=== PATIENT | male | born 1955 | race Caucasian/White ===

== ENCOUNTER 2022-03-27 08:34 | Outpatient (CLI) | payer MEDICARE, BC, SELFPAY ==
[2022-03-27 15:01] LABS: Thyroid Stimulating Hormone* 0.107 uIU/mL (0.270-4.20)
== END 2022-03-27 08:35 | disposition home or self-care (01) ==
LOC: FBOREF 08:34
PROVIDERS: PCP Family Medicine; Visit Provider Family Medicine
DX: E03.9 Hypothyroidism, unspecified (principal); E11.9 Type 2 diabetes mellitus without complications
CPT/HCPCS: 84443

== ENCOUNTER 2022-05-31 09:06 | Outpatient (CLI) | payer MEDICARE, BC, SELFPAY ==
[2022-05-31 13:51] LABS: Basophils Absolute Auto 0.02 K/uL (0.00-0.30); Basophils Percent Auto 0.4 % (0.0-3.0); Eosinophils Absolute Auto 0.14 K/uL (0.00-0.50); Eosinophils Percent Auto 2.8 % (0.0-7.0); Hematocrit 37.9 % (37.0-53.0); Hemoglobin* 12.8 gm/dL (13.5-17.5); Immature Granulocytes Abs Auto 0.01 K/uL (0.00-0.30); Immature Granulocytes Pct Auto 0.2 %; Lymphocytes Absolute Auto 1.53 K/uL (0.90-2.90); Lymphocytes Percent Auto 30.4 % (20-44); Mean Corpuscular HGB Conc 34 gm/dL (32-36); Mean Corpuscular Hemoglobin 31 pg (26-34); Mean Corpuscular Volume 91 fL (80-100); Monocytes Percent Auto 9.3 % (0.0-11.0); Neutrophils Absolute Auto 2.86 K/uL (1.7-7.0); Neutrophils Percent Auto 56.9 % (42.0-72.0); Platelet Count* 237 K/uL (140-440); RDW Coefficient of Variation % 12.4 % (11.5-15.5); Red Blood Count 4.16 m/uL (4.30-5.90); White Blood Count* 5.03 K/uL (4.50-11.00)
[2022-05-31 13:57] LABS: Slide Review Reflex No
[2022-05-31 15:12] LABS: Chloride* 100 mmol/L (96-114); Potassium* 4.1 mmol/L (3.6-5.1); Sodium* 140 mmol/L (135-149)
[2022-05-31 15:15] LABS: Blood Urea Nitrogen* 19 mg/dL (7-30); Carbon Dioxide* 32 mmol/L (20-32); Creatinine* 1.2 mg/dL (0.5-1.5); Estimated Glomerular Filt Rate 66 ml/min
[2022-05-31 15:16] LABS: Calcium* 9.3 mg/dL (8.4-10.6); Glucose* 82 mg/dL (60-115)
== END 2022-05-31 09:07 | disposition home or self-care (01) ==
PROVIDERS: PCP Family Medicine; Visit Provider Family Medicine
DX: Z01.818 Encounter for other preprocedural examination (principal); I10 Essential (primary) hypertension
CPT/HCPCS: 80048; 85025

== ENCOUNTER 2022-06-04 09:18 | Outpatient (CLI) | payer MEDICARE, BC, SELFPAY ==
[2022-06-04 14:37] LABS: SARS PCR* Negative SARS-CoV-2 (Negative)
== END 2022-06-04 09:19 | disposition home or self-care (01) ==
LOC: FBOREF 09:18
PROVIDERS: PCP Family Medicine; Visit Provider Orthopaedic Surgery
DX: Z20.822 Contact with and (suspected) exposure to COVID-19 (principal)
CPT/HCPCS: 87635

== ENCOUNTER 2022-06-05 06:44 | Day surgery (SDC) | payer MEDICARE, BC, SELFPAY ==
[2022-06-05] VITALS (13 sets, daily range): BP systolic 115–170; BP diastolic 55–70; PULSE 62–72; RESP 16; TEMP 36.4–36.8; O2SAT 94–100; BMI 32.3
[2022-06-05] MEDS: LACTATED RINGERS 1000 ML 1,000 ML 100 ML IV (07:47)
[2022-06-05] MEDS: SODIUM CHLORIDE 0.9 % (FLUSH) 10 ML SYRINGE IVF (07:48)
[2022-06-05] MEDS: CEFAZOLIN 2 GM INJ IVP (08:25)
[2022-06-05] MEDS: BUPIVACAINE 0.25% 30 ML INJECTION (09:15)
--- NOTE | 2022-06-05 09:19 | P.ORPRC_ITS ---
Procedure Note Date of procedure: 06/05/22 Procedure: SURGEON: Chris Espinoza MD PICKING CREW SUPERVISOR: MARILIA Ivey PREOPERATIVE DIAGNOSIS: Left knee medial meniscus root tear, medial compartment osteoarthritis, lateral meniscus tear POSTOPERATIVE DIAGNOSIS: Left knee medial meniscus root tear, medial compartme nt osteoarthritis, lateral meniscus tear NAME OF OPERATION: Left knee arthroscopic partial medial meniscectomy, medial compartment chondroplasty, partial lateral meniscectomy ANESTHESIA: Spinal ESTIMATED BLOOD LOSS: 0 mL COMPLICATIONS: None SPECIMENS: None DRAINS: None PREOPERATIVE ANTIBIOTICS: Ancef 2 gram INDICATIONS: The patient is a 67-year-old male with a history of left knee medial pain. MRI scan is consistent with a medial meniscus root tear. Despite appropriate nonoperative management, including activity modification, antiinflammatories, lpwz-oud-ijleahj pain medication, bracing, physical therapy, and injections they continue to have pain and disability. Operative intervention was offered. The risks, benefits and expected outcomes were discussed in detail. These included but were not limited to: Infection, bleeding, injury to blood vessel or nerve, venous thromboembolism. All questions were answered to their satisfaction. PROCEDURE: Spinal anesthesia was administered. The patient was placed supine on the operating room table. The left lower extremity was prepped and draped in the usual sterile fashion. The limb was exsanguinated with the Sundar bandage. The pneumatic tourniquet was inflated to 300 mmHg. A standard anterolateral portal was established. The arthroscope was introduced. The working portal was established anteromedially. Diagnostic arthroscopy was performed with findings as follows: The suprapatellar pouch shows loose bodies proximally consistent with either articular cartilage or fibrinous exudate. Articular surface on the patella is normal. Articular surface on the trochlea shows a focal area of grade 2/3 change distally. The medial gutter has loose bodies consistent with articular cartilage versus fibrinous exudate. Given the amount of varus through the upper tibia and through the knee joint, it is quite difficult to visualize the medial compartment. The medial compartment shows diffuse grade 3 change on the medial femoral condyle, there is a focal area of grade 4 change under the midbody of the medial meniscus. The medial meniscus has degenerative tearing of the leading edge of the posterior horn with a radial tear at the posterior tibial attachment from the leading edge to the capsule, detaching it from the tibia. The notch shows the ACL to be intact, with some degenerative fraying at its insertion. The lateral compartment shows normal articular cartilage on the lateral femoral condyle and lateral tibial plateau. The lateral meniscus has a small radial tear at the junction of the midbody and anterior horn with some chondrocalcinosis versus recent corticosteroid injection. The lateral gutter has loose bodies consistent with either articular cartilage or fibrinous exudate. With the grade 4 change on the upper tibia in the medial compartment, it was felt that root repair was not indicated. Therefore, the posterior horn of the medial meniscus was debrided to a stable base using a combination of baskets and ramon through both portals. Unstable chondral flaps on the medial femoral condyle and medial tibial plateau were debrided with the shaver through both portals, taken to a stable base. Finally, tearing of the lateral meniscus was debrided with a basket and shaver through both portals, taking it to a stable base. Arthroscopic instruments were removed, the portal sites were Steri-Stripped closed, the knee was infiltrated with 30 mL of 0.25% Marcaine without epinephrine. A dry dressing was applied, the tourniquet was released. Sponge and needle counts were correct x 2. The patient tolerated the procedure well. There were no apparent complications. They were carefully transferred to the hospital bed and taken to the postanesthesia care unit in satisfactory condition. PLAN: The patient will be discharged to home. They may weightbear as tolerates. Range of motion will be unrestricted. They will follow up in the office next week for a wound check.
--- NOTE | 2022-06-05 09:28 | W.ANESCHARGE ---
Anesthesia Charges Start Date/Time Anesthesia Start Date: 06/05/22 Anesthesia Start Time: 09:23 Stop Date/Time Anesthesia Stop Date: 06/05/22 Anesthesia Stop Time: 09:29 Summary Emergency: No
--- NOTE | 2022-06-05 09:37 | SUR.PHASEI ---
pt has insulin pump intact with a patch to continuously check his blood sugar blood sugar 150 at this time insulin pump running
--- NOTE | 2022-06-05 10:43 | W.ANESCHARGE ---
Anesthesia Charges Start Date/Time Anesthesia Start Date: 06/05/22 Anesthesia Start Time: 08:23 Stop Date/Time Anesthesia Stop Date: 06/05/22 Anesthesia Stop Time: 09:29 Summary Emergency: No
--- NOTE | 2022-06-05 11:34 | W.ANESCHARGE ---
Anesthesia Charges Start Date/Time Anesthesia Start Date: 06/05/22 Anesthesia Start Time: 08:23 Stop Date/Time Anesthesia Stop Date: 06/05/22 Anesthesia Stop Time: 09:29 Summary Emergency: No
== END 2022-06-05 11:30 | disposition home or self-care (01) ==
PROVIDERS: PCP Family Medicine; Visit Provider Orthopaedic Surgery
PROC: (CPT 29882; principal; 2022-06-05 08:15)
DX: S83.242A Other tear of medial meniscus, current injury, left knee, initial encounter (principal); S83.282A Other tear of lateral meniscus, current injury, left knee, initial encounter; M17.12 Unilateral primary osteoarthritis, left knee
CPT/HCPCS: 29880; 01400; 01402; 82962; J0690; J1100; J2250; J2400; J2405; J2704; J3010; J3490; J7120

== ENCOUNTER 2022-08-29 10:36 | Outpatient (CLI) | payer MEDICARE, BC, SELFPAY ==
[2022-08-29 13:58] LABS: Cholesterol* 138 mg/dL (90-199); HDL Cholesterol* 42 mg/dL (>=40); LDL Cholesterol Calculated 76 mg/dL (<100); Triglycerides* 99 mg/dL (40-149)
[2022-08-29 14:25] LABS: PSA Screen* 3.39 ng/mL (0.10-4.00)
== END 2022-08-29 10:37 | disposition home or self-care (01) ==
PROVIDERS: PCP Family Medicine; Visit Provider Family Medicine
DX: E78.5 Hyperlipidemia, unspecified (principal); Z12.5 Encounter for screening for malignant neoplasm of prostate
CPT/HCPCS: 80061; 84153

== ENCOUNTER 2023-05-15 08:18 | Outpatient (CLI) | payer MEDICARE, BC, SELFPAY | END 2023-05-15 08:19 | disposition home or self-care (01) | PROVIDERS: PCP Family Medicine; Visit Provider Family Medicine | DX: Z01.818 Encounter for other preprocedural examination (principal) | CPT/HCPCS: 80048; 85025 ==

== ENCOUNTER 2023-05-24 13:51 | Outpatient (RCR) | payer MEDICARE, BC, SELFPAY ==
--- NOTE | 2023-05-24 14:47 | PT.OPEX ---
PT [facility] PT [facility] Out[facility] Eval Start: 05/24/23 08:45 Freq: Status: Active Protocol: Document 05/24/23 08:45 HAMMAD (Rec: 05/24/23 14:42 [email or web address] [id number]) E-signed By Anastasia Gonzalez Physical Therapy Outpatient Evaluation Insurance Information Recert Due Date 08/23/23 Insurance Name Medicare B Medical Diagnosis M17.12 L knee OA Z96.652 Artificial L knee joint Treating Diagnosis M25.652 L knee pain M25.662 L knee stiffness Referring MD Espinoza Subjective Subjective Pt presents pre-op LTKA on 05/28/[address] Espinoza. This is his first joint replacement. Pt reports that he's been having knee pain for a few years. Bending down, kneeling, walking all aggravate symptoms. Pt has seeing for the last month and a half. Pt has also had issues with sciatica on R side. No issues with the R knee. Pt takes Ibuprofen for pain. Pt lives with spouse who can assist. Pt lives in two story home. Bedroom is up stairs. Railing is on R side. Pt has 1 steps to enter home, with L counter to hold onto. Walk in shower with grab bars, raised toilet seat. Pt has SPC and will be borrowing 2WW from friend. No issues with UEs. Pt will be doing OP PT at [facility] post-op. Pain Comments 09/28 Date of Surgery (If applicable) 05/28/23 Current Work Status Retired Preferred Name Ryan Precautions Treatment Precautions/Contraindications PMHx: DM, HTN, HLD, hypothyroidism Therapy Limitations/Systems Review Not Limited Objective Range of Motion L knee AROM= 5-100 R knee AROM= 0-115 Hamstring length= WNLs, slightly more limited on LLE Strength Hip flexion L/R = 5/5 Hip abd L/R = 5/5 Hip add L/R = 5/5 Quads L/R = 5/5 Hamstrings L/R = 5/5 Balance & Gait No AD use. Assessment Assessment/Impression Pt is a 68yo M presenting pre- op LTKA on 05/28/[address] Espinoza. PMHx: DM, HTN, HLD, hypothyroidism. Pt with long standing hx of L knee pain that is exacerbated with walking, bending over, and kneeling. Lives with spouse in multilevel home with bedroom upstairs. Walk in shower with grab bar as well. Upon exam, pt displays dec L knee ROM compared to R. Strength is WFLs. Pt was educated on HEP, POC, pain/swelling management, stair training, equipment needs, and fall prevention. Will be performing OP PT at [facility]. Primary Functional Limitations Pain with ADLs L knee ROM deficits Plan of Care Rehabilitation Potential Excellent Physical Therapy Goals In one session: 1. Pt will be IND with HEP in order to perform at home post- op IND. 2. Pt will navigate 4 steps with B rails using proper step sequencing in order to enter/ exit home safely post-op. 3. Pt will provide verbal understanding of post-op precautions in order to reduce risk of post-op complications . Coordination/Communication With Referral Source Treatment Plan/Direct Interventions Self-Care/Home Management, Therapeutic Activities, Therapeutic Exercises Frequency/Duration 1x only Patient Will Be Discharged From Therapy Completion of LTG(s), Independent w/HEP Evaluation Billing Untimed Code Treatment Minutes 10 PT Eval No Charge No Complexity Low Certification Information Initial Certification Date 05/24/23 Ending Certification Date 08/23/23 Provider Signature Shows Agreement With POC & Medical Necessity Physician Comment/Change : Physician NPI Number #
== END 2023-09-21 23:59 | disposition home or self-care (01) ==
PROVIDERS: PCP Family Medicine; Visit Provider Orthopaedic Surgery
DX: M17.12 Unilateral primary osteoarthritis, left knee (principal); Z96.652 Presence of left artificial knee joint; M25.662 Stiffness of left knee, not elsewhere classified; M25.562 Pain in left knee; Z51.89 Encounter for other specified aftercare
CPT/HCPCS: 97110; 97161; 97530

== ENCOUNTER 2023-05-29 14:08 | Inpatient (IN) | payer MEDICARE, BC, SELFPAY ==
[2023-05-28] VITALS (24 sets, daily range): BP systolic 103–166; BP diastolic 48–70; PULSE 48–74; RESP 12–16; TEMP 35.3–36.4; O2SAT 94–100; BMI 30.9
[2023-05-28] MEDS: ACETAMINOPHEN 500 MG TABLET 1000 MG PO ×2 (07:53→23:39)
[2023-05-28] MEDS: CELECOXIB 200 MG CAPSULE PO (07:53)
[2023-05-28] MEDS: OXYCODONE (CR) 10 MG TAB.ER.12H PO (07:53)
[2023-05-28] MEDS: LACTATED RINGERS 1000 ML 1,000 ML 100 ML IV (07:55)
[2023-05-28] MEDS: SODIUM CHLORIDE 0.9 % (FLUSH) 10 ML SYRINGE IVF (08:37)
--- NOTE | 2023-05-28 08:37 | SUR.PREOP ---
TIME?OUT:?0858 PT/RN/MDA?VERIFICATION?OF?SURGICAL?SITE Left Knee,?PROCEDURE Adductor Canal Block,?AND?CONSENT OBTAINED?PRIOR?TO?INVASIVE?PROCEDURE.
[2023-05-28] MEDS: MIDAZOLAM HCL 1 MG/ML inj IVP (08:59)
[2023-05-28] MEDS: fentaNYL 100 MCG/2 ML inj IVP (08:59)
[2023-05-28] MEDS: TRANEXAMIC ACID 100 MG/ML INJ 1000 MG IV (09:38)
[2023-05-28] MEDS: CEFAZOLIN 2 GM INJ IVP (09:38)
--- NOTE | 2023-05-28 10:22 | P.NB_ITS ---
Nerve Block Nerve Block Time Seen by Provider: 09:30 Date Seen: 05/28/23 Type of block requested by surgeon for post-operative analgesia: adductor canal Side: left Time out performed: Yes Verification of patient name: Yes Verification of date of : Yes Site marking: site marked Name of person performing procedure: Quentin Raji Continuous monitoring Was continuous monitoring of O2 sat, B/P, clinical research monitor, recorded every 15 minutes?: Yes Procedure Checklist: sterile prep, needles and gloves Ultrasound guided. Images saved: Yes Medications given in 5ml increments after negative aspiration: Marcaine %: 0.5 mL: 20 Needle gauge: 20 Decadron (mg): 10 Precedex (mcg): 25 Patient tolerated procedure well: Yes Additional comments: Injected in 5mL increments after negative aspiration Block Charges Block Charge (with Pro Fee): Femoral Nerve Use of Ultrasound Machine for Block: Yes- US Guidance/pain block
--- NOTE | 2023-05-28 10:25 | P.NB_ITS ---
Nerve Block Nerve Block Time Seen by Provider: 09:30 Date Seen: 05/28/23 Type of block requested by surgeon for post-operative analgesia: geniculars Side: left Time out performed: Yes Verification of patient name: Yes Verification of date of : Yes Site marking: site marked Name of person performing procedure: Quentin Raji Continuous monitoring Was continuous monitoring of O2 sat, B/P, industrial x ray operator, recorded every 15 minutes?: Yes Procedure Checklist: sterile prep, needles and gloves Ultrasound guided. Images saved: Yes Medications given in 5ml increments after negative aspiration: Marcaine %: 0.5 mL: 10 Needle gauge: 24 Decadron (mg): 3.3 Precedex (mcg): 8.3 Patient tolerated procedure well: Yes Additional comments: Injected in 4mL increments after negative aspirations Block Charges Block Charge (with Pro Fee): Genicular Nerve Block Use of Ultrasound Machine for Block: No
--- NOTE | 2023-05-28 10:36 | CRLHL7_ITS ---
For Patients: As a result of the Cures Act, medical imaging exams and procedure reports are released immediately into your electronic medical record. You may view this report before your referring provider. If you have questions, please contact your health care provider. Indication: POSTOP TKA Technique: Two views left knee Findings/Impression: Hardware from a left total knee arthroplasty is in satisfactory position. Bone alignment is normal. No sign of acute fracture. Postop changes are within normal limits. Dictated by Todd Gallardo MD @ 05/29/2023 9:13:10 AM (Electronically Signed)
--- NOTE | 2023-05-28 10:40 | P.ORPRC_ITS ---
Procedure Note Date of procedure: 05/28/23 Procedure: PREOPERATIVE DIAGNOSIS: Left knee osteoarthritis POSTOPERATIVE DIAGNOSIS: Left knee osteoarthritis NAME OF OPERATION: Left total knee arthroplasty SURGEON: Chris Espinoza MD ASSEMBLER MUSICAL INSTRUMENTS: MARILIA Ivey ANESTHESIA: Spinal ESTIMATED BLOOD LOSS: 0 mL COMPLICATIONS: None SPECIMENS: None DRAINS: None PREOPERATIVE ANTIBIOTICS: Ancef 2 grams, antibiotic impregnated cement IMPLANTS: 1. J&J Attune #6 posterior stabilized femur 2. # 5 fixed-bearing tibia 3. #6 posterior stabilized, 5 mm fixed-bearing polyethylene 4. 38 patella INDICATIONS: The patient is a 68-year-old with a longstanding history of severe, unrelenting left knee pain secondary to end-stage (grade IV) left knee osteoarthritis. Despite appropriate nonoperative management, including activity modification, anti-inflammatories, lcrc-mij-fectiol pain medication, bracing, physical therapy, and injections they continue to have pain and disability. Operative intervention was offered. The risks, benefits and expected outcomes were discussed in detail. These included but were not limited to: Infection, bleeding, injury to blood vessel or nerve, venous thromboembolism. All questions were answered to their satisfaction. Use of an assistant professor of biochemistry was necessary throughout the case for patient positioning and safety, soft tissue retraction, and closure. PROCEDURE: Spinal anesthesia was administered. The patient was placed supine on the operating table. The assistant professor of biochemistry made sure the patient was positioned appropriately. The lower extremity was prepped and draped in the usual sterile fashion. The limb was exsanguinated with the Sundar bandage. The pneumatic tourniquet was inflated to 300 mmHg. A standard anterior incision was made with the knee in flexion. Subcutaneous dissection was sharply taken through fascial layer #1. Full-thickness medial and lateral flaps were elevated. The assistant professor of biochemistry retracted the soft tissues and protected them throughout the case. A standard medial parapatellar approach was made. The patella was everted. The infrapatellar fat pad was preserved. The menisci and cruciate ligaments were sharply d?brided. Marginal osteophytes were d?brided with the rongeur. The drill was used to penetrate the femoral canal. The canal was aspirated and irrigated with pulse lavage. The intramedullary femoral guide was placed for a 5-degree valgus cut, removing 10 mm off the distal femur. The saw was used to make the cut. Whitesides line and the trans epicondylar axis were marked. The femoral sizing guide was pinned onto the distal femur. Three degrees of external rotation nicely parallels the transepicondylar axis. Pins were placed for posterior referencing. The four-in-one cutting guide was pinned onto the distal femur. The anterior, posterior, and chamfer cuts were made. The assistant professor of biochemistry protected the collateral ligaments. The box cutting guide was pinned. The box cuts were made. The boxed trial was placed and was an excellent fit. Drill holes for the lugs were made. Attention was then turned to the proximal tibia. The extramedullary tibial guide was placed for a neutral varus/valgus cut with 5 degrees of posterior slope, removing 2 mm based off the medial tibial surface. The assistant professor of biochemistry protected the collateral ligaments and the neurovascular bundle. The saw was used to make the cut. Trial components were placed. The knee was nicely balanced in both flexion and extension. The trial components were removed. The tray was placed in appropriate rotation, parallel to our tibial cutting pins. It was pinned by the assistant professor of biochemistry and the drill and the punch were used. The tray was removed. The punch was used again. We placed a bone plug in the femoral canal. Attention was then turned to the patella. [place] patellar thickness was 22.5 mm. The lobster claw resection guide was used with the 9.5 mm connie. The saw was used to make the cut. Drill holes were made by the assistant professor of biochemistry. The trial was placed and was an excellent fit. Cancellous surfaces were irrigated with pulse lavage and thoroughly dried by the assistant professor of biochemistry. We cemented the tibial component, then the femoral component. We impacted the 5 mm polyethylene onto the tibial tray. The knee was brought into full extension. We then cemented the patellar component. Excessive cement was removed. The cement was allowed to harden. The knee was taken through a range of motion and was found to be nicely balanced in both flexion and extension. The patella tracks centrally. The assistant professor of biochemistry did a three minute dilute Betadine solution soak. The assistant professor of biochemistry irrigated the wound with 3 liters of normal saline via pulse lavage. The assistant professor of biochemistry reapproximated the extensor mechanism with #1 Vicryl in an interrupted [id number]-my-orrdg fashion. The assistant professor of biochemistry then ran the extensor mechanism with a #1 PDO Stratafix. The assistant professor of biochemistry closed the subcutaneous tissues with a 3-0 Stratafix and the skin with a running 3-0 Stratafix in a subcuticular fashion. Glue was used to seal the skin. The assistant professor of biochemistry placed a dry dressing, RODO stocking, and Polar Care. Sponge and needle counts were correct x2. The patient tolerated the procedure well. There were no apparent complications. They were carefully transferred to the hospital bed and taken to the postanesthesia care unit in satisfactory condition. PLAN: The patient will be mobilized with physical therapy. Aspirin will be used for DVT prophylaxis. They will be discharged to home once medically appropriate.
--- NOTE | 2023-05-28 11:25 | W.ANESCHARGE ---
Anesthesia Charges Start Date/Time Anesthesia Start Date: 05/28/23 Anesthesia Start Time: 09:10 Stop Date/Time Anesthesia Stop Date: 05/28/23 Anesthesia Stop Time: 11:10
[2023-05-28] MEDS: ONDANSETRON 2 MG/ML inj 4 MG IVP ×2 (14:13→19:48)
[2023-05-28] MEDS: LORazepam 2 MG/ML inj 0.5 MG IVP (15:15)
[2023-05-28] MEDS: CEFAZOLIN 2 GM in 0.9 % SODIUM CHLORIDE Mini-bag 100 ML IVPB ×2 (15:45→23:39)
[2023-05-28] MEDS: LACTATED RINGERS 1000 ML 1,000 ML 75 ML IV (15:45)
--- NOTE | 2023-05-28 16:27 | P.IMCN_ITS ---
Date of Consult Patient: [facility] Patient Consult date: 05/28/23 Requesting Physician: Orthopedics Primary Care Provider: Todd Thomason MD Consult Narrative Reason for consult: Postop care DMT1, HTN, HLD, ANJANA Narrative: Cordell Cruz is a 68 year old man who underwent a successful elective left total knee arthroplasty today with Dr. Espinoza. He had no apparent complications. Pain is adequately managed. Is having nausea and retching now. Blood sugars are well controlled at 111. Denies chest heaviness, pressure, tightness, or pain. Denies dyspnea at rest, paroxysmal nocturnal dyspnea, orthopnea. Denies cough. No aspiration. No gagging or sputtering. No abdominal pain, dyspepsia, dysphagia, odynophagia. Denies diarrhea or constipation. Denies dysuria, urgency, frequency, hematuria. No flank pain. Has not had nausea as a complication of anesthesia in the past. Review of Systems Status of ROS: Reports: 10 or more systems reviewed and unremarkable except as noted in History and below Narrative: Has a continuous glucose monitoring device. Has an insulin pump. He is very adept at managing his blood sugars. No recent trauma, injury, or travel. Aside from the surgery, no recent major blood loss. No fevers, rigors, diaphoresis. Denies myalgias or arthralgias. No focal motor neurologic deficits. Ordinarily is independent transfer, station, and gait. [facility] Medical History (Updated 05/28/23 @ 16:45 by Ramón Del Valle MD) Pre-op evaluation ?Z01.818 - Encounter for other preprocedural examination (ICD-10) Osteoarthritis of left knee ?M17.12 - Unilateral primary osteoarthritis, left knee (ICD-10) Tear of medial meniscus of left knee ?S83.242A - Other tear of medial meniscus, current injury, left knee, initial encounter (ICD-10) Type 1 diabetes mellitus without complication, with senior living current use of insulin pump (03/20/15) ?E10.9 - Type 1 diabetes mellitus without complications (ICD-10) ?Z96.41 - Presence of insulin pump (external) (internal) (ICD-10) Obstructive sleep apnea syndrome ?G47.33 - Obstructive sleep apnea (adult) (pediatric) (ICD-10) Hypothyroidism ?E03.9 - Hypothyroidism, unspecified (ICD-10) Hyperlipidemia ?E78.5 - Hyperlipidemia, unspecified (ICD-10) Essential hypertension ?I10 - Essential (primary) hypertension (ICD-10) Surgical History (Updated 05/28/23 @ 16:43 by Ramón Del Valle MD) Status post arthroscopy of left knee ?Z98.890 - Other specified postprocedural states (ICD-10) History of meniscectomy of left knee (06/05/22) ?Z98.890 - Other specified postprocedural states (ICD-10) History of tonsillectomy and adenoidectomy (1963) ?Z90.89 - Acquired absence of other organs (ICD-10) History of colonoscopy with polypectomy ?Z98.890 - Other specified postprocedural states (ICD-10) ?Z86.010 - Personal history of colonic polyps (ICD-10) History of colonoscopy (06/11/15) ?Z98.890 - Other specified postprocedural states (ICD-10) History of cataract extraction (1997) ?Z98.49 - Cataract extraction status, unspecified eye (ICD-10) Family History Mother Breast cancer, Onset Age: 75 Colon cancer, Onset Age: 89 Social History Narrative: , 1 daughter, non-smoker, no EtOH, 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 What is your current living situation?: I presently have a place to live In the past 12 months, utilities in danger of being shut off: no In past 12 months, lack of transportation kept you from medical appts, meetings, work, or getting things needed for daily living: no In the past 12 mos, have been you worried that your food would run out before you had money to buy more?: never true In the past 12 mos, the food you bought just didn't last and you didn't have money to buy more?: never true Smoking Status: Never smoker How often do you have a drink containing alcohol: never How often do you have six or more drinks on one occasion: Never AUDIT-C Alcohol total score: 0 Non-prescribed substance use: denies use Caffeine: No How often does anyone, including family, friends and others, physically hurt you : never How often does anyone, including family, friends and others, insult or talk down to you: never How often does anyone, including family, friends and others, threaten you with harm: never How often does anyone, including family, friends and others, scream or curse at you: never Little interest or pleasure in doing things: not at all Feeling down, depressed, or hopeless: not at all Meds Home Medications and Allergies Home Medications Medication Instructions Recorded Confirmed Type Lactobacillus acidophilus 1 10 mg PO QDAY 02/02/22 05/28/23 History billion cell capsule aspirin 81 mg tablet,delayed 81 mg PO DAILY 02/02/22 05/28/23 History release insulin pump controller 02/02/22 05/27/23 History multivitamin 1 tab PO QAM 02/02/22 05/28/23 History Diabetic Test Strips 03/27/22 05/27/23 History krill oil 500 mg capsule 500 mg PO QDAY 03/27/22 05/28/23 History cpap inhalation 05/31/22 05/27/23 History coenzyme Q10 10 mg capsule 30 mg PO QDAY 11/27/22 05/28/23 History Allergies Allergy/AdvReac Type Severity Reaction Status Date / Time lisinopril AdvReac Mild Cough Verified 05/28/23 07:55 Exam Narrative: Exam Narrative: I examine him in his hospital room. Appears tired. He is in no acute distress. Intermittent retching. Vision and hearing are grossly normal. Alert and oriented to self, place, time, situation. From the, articulate, cooperative. Mood and affect are congruent. No icterus or conjunctival injection. Conjugate gaze. Pupils equally round and reactive to light and accommodation. Dentition in fair repair. Dry buccal mucosa. Neck is full. Midline trachea. Supple. No head neck lymphadenopathy. Lungs are clear to auscultation without wheezing, rhonchi, or rales. Chest wall excursions are full with respiratory efforts. No CVA tenderness. Heart tones with regular rhythm, normal S1-S2, without murmur, gallop, or rub. PMI is not laterally displaced. Abdomen is obese with active bowel sounds, soft, nontender. Extremities without edema. Palpable pulses in upper and lower extremities. No focal motor neurologic deficits. No tremor or asterixis. Const: Vital Signs, click to edit/add: Vital Signs - 24 hr 05/28/23 08:06 05/28/23 08:57 05/28/23 09:00 Temperature 97.6 F Pulse Rate 63 63 60 Pulse Rate [Pulse Oximeter] Respiratory Rate 16 16 16 Blood Pressure 134/69 142/62 H 109/49 L Blood Pressure [Ri ght Arm] Pulse Oximetry 98 98 98 Oxygen Delivery Me thod Room Air Nasal Cannula Nasal Cannula Oxygen Flow Rate 2 2 05/28/23 09:05 05/28/23 11:15 05/28/23 11:20 Temperature 97.1 F L Pulse Rate 59 L 54 L 54 L Pulse Rate [Pulse Oximeter] Respiratory Rate 16 12 12 Blood Pressure 103/48 L 108/54 L 103/53 L Blood Pressure [Ri ght Arm] Pulse Oximetry 98 96 95 Oxygen Delivery Me thod Nasal Cannula Room Air Oxygen Flow Rate 2 05/28/23 11:25 05/28/23 11:30 05/28/23 11:35 Temperature Pulse Rate 53 L 52 L 51 L Pulse Rate [Pulse Oximeter] Respiratory Rate 12 12 12 Blood Pressure 107/57 L 108/56 L 109/56 L Blood Pressure [Ri ght Arm] Pulse Oximetry 96 98 94 Oxygen Delivery Me thod Oxygen Flow Rate 05/28/23 11:40 05/28/23 11:45 05/28/23 12:00 Temperature 97.4 F L 96.2 F L Pulse Rate 51 L 51 L 51 L Pulse Rate [Pulse Oximeter] Respiratory Rate 12 12 14 Blood Pressure 113/53 L 114/55 L Blood Pressure [Ri ght Arm] 115/54 L Pulse Oximetry 95 94 Oxygen Delivery Me thod Room Air Room Air Oxygen Flow Rate 0 05/28/23 12:15 05/28/23 12:30 05/28/23 12:45 Temperature 95.8 F L 95.9 F L 96.0 F L Pulse Rate Pulse Rate [Pulse Oximeter] 52 L 52 L 48 L Respiratory Rate 14 14 16 Blood Pressure Blood Pressure [Ri ght Arm] 131/65 148/60 H 137/58 L Pulse Oximetry 98 98 97 Oxygen Delivery Me thod Room Air Room Air Nasal Cannula Oxygen Flow Rate 0 0 1 05/28/23 13:00 05/28/23 13:30 05/28/23 14:00 Temperature 95.9 F L 95.6 F L 96.0 F L Pulse Rate Pulse Rate [Pulse Oximeter] 49 L 50 L 50 L Respiratory Rate 14 14 14 Blood Pressure Blood Pressure [Ri ght Arm] 131/61 140/63 H 147/70 H Pulse Oximetry 98 98 99 Oxygen Delivery Me thod Nasal Cannula Nasal Cannula Nasal Cannula Oxygen Flow Rate 1 1 1 05/28/23 15:00 05/28/23 16:00 Temperature 96.1 F L 96.3 F L Pulse Rate Pulse Rate [Pulse Oximeter] 54 L 55 L Respiratory Rate 14 12 Blood Pressure Blood Pressure [Ri ght Arm] 148/61 H 133/54 L Pulse Oximetry 100 100 Oxygen Delivery Me thod Nasal Cannula Nasal Cannula Oxygen Flow Rate 1 1 Assessment and Plan Assessment and plan (1) Osteoarthritis of left knee: Problem comment: Grade 4 [id number] medial compartment, mild osteoarthritis patellofemoral compartment Status: Acute (2) 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 Status: Acute (4) Hyperlipidemia: Problem comment: - on statin therapy Status: Acute (5) Hypothyroidism: Problem comment: - on replacement therapy Status: Acute (6) Obstructive sleep apnea syndrome: Problem comment: - on CPAP at bedtime Status: Acute (7) BPH (benign prostatic hyperplasia): Problem comment: - Tamsulosin 0.4 mg daily Status: Acute (8) Obesity (BMI 30.0-34.9): Status: Acute (9) Status post total left knee replacement: Problem comment: - 05/28/2023, Dr. Espinoza, [facility]. - on venous thromboembolism prophylaxis Status: Acute (10) Post-operative nausea and vomiting: Problem comment: - IV fluids and supportive measures with antiemetics as needed Status: Acute Plan 1. Reviewed impression with patient. 2. Answered his questions. 3. Will support patient while in hospital. 4. Agree with postoperative venous thromboembolism prophylaxis. 5. Agree with perioperative antibiotic prophylaxis.
[2023-05-28] MEDS: droperidoL 2.5 MG/ML inj 0.625 MG IV (17:47)
--- NOTE | 2023-05-28 18:37 | PC.NURSE ---
Pt arrived to floor from surgery at noon. Pt alert and oriented but drowsy. Pt and stated that Pt uses CPAP at home; Pt chose to not bring CPAP for overnight hospital stay. The quality analyst/technical writer spoke with RT about this and RT directed that Pt can be put on 1-2 Liters while sleeping to help maintain oxygen saturations. Pt had no complaints of pain. Pt?s dressing dry and intact. Pt slept most of shift after arriving to floor. Pt had multiple episodes of emesis from 1330-current; see EMAR for intervention. Pt uses own glucose monitor and insulin pump. Blood glucose at 1420- 120; 1730-134.?Pt's VSS but bradycardic.
[2023-05-28] MEDS: HYDROmorphone 0.5 mg/0.5 ml inj IVP (19:47)
[2023-05-28] MEDS: TAMSULOSIN HCL 0.4 MG CAPSULE PO (21:05)
[2023-05-28] MEDS: ASPIRIN 81 MG TABLET EC PO (21:05)
[2023-05-29] MEDS: HYDROmorphone 0.5 mg/0.5 ml inj IVP (02:23)
[2023-05-29] MEDS: ONDANSETRON 2 MG/ML inj 4 MG IVP ×2 (02:23→06:27)
[2023-05-29 03:00] VITALS: BP 144/59; PULSE 69; RESP 18; TEMP 36.2; O2SAT 97
[2023-05-29] MEDS: LACTATED RINGERS 1000 ML 1,000 ML 75 ML IV ×3 (05:54→19:40)
[2023-05-29 06:47] LABS: Basophils Absolute Auto 0.01 K/uL (0.00-0.30); Basophils Percent Auto 0.1 % (0.0-3.0); Hematocrit 37.2 % (37.0-53.0); Hemoglobin* 12.6 gm/dL (13.5-17.5); Mean Corpuscular HGB Conc 34 gm/dL (32-36); Mean Corpuscular Hemoglobin 31 pg (26-34); Mean Corpuscular Volume 91 fL (80-100); Monocytes Percent Auto 5.1 % (0.0-11.0); Neutrophils Percent Auto 87.8 % (42.0-72.0); Platelet Count* 195 K/uL (140-440); RDW Coefficient of Variation % 12.2 % (11.5-15.5); Red Blood Count 4.09 m/uL (4.30-5.90)
[2023-05-29 06:48] LABS: Sodium* 136 mmol/L (135-149)
[2023-05-29 06:51] LABS: Blood Urea Nitrogen* 25 mg/dL (7-30); Creatinine* 1.2 mg/dL (0.5-1.5); Estimated Glomerular Filt Rate 66 ml/min
--- NOTE | 2023-05-29 06:52 | PC.NURSE ---
End of shift [id number]: Pt A&O, pleasant and cooperative. VSS. Pt has hx of sleep apnea. He did not bring his CPAP. Pt placed on 1L of 02 throughout the night per request. CMS intact and positive petal pulses. Dressing to left knee c/d/i. Cryocuff on site. Pt reports bouts of nausea w/ no emesis. Pt was able to take oral PM meds. Pt ambulated to bathroom x2 w/ A2 walker and gait belt. After second trip to the bathroom pt reported nausea and was dry heaving. At this time pt was reporting 5/10 pain in knee. See eMAR for interventions. This morning content writer raised pt?s head of bed and pt instantly became nauseous and had one small emesis. Crackers and jello were tolerated by pt earlier in the shift. Pt is voiding adequate amounts. Denies any lightheadedness or dizziness when ambulating. Using call light appropriately. ?
[2023-05-29 06:59] LABS: Slide Review Reflex No
[2023-05-29 07:00] VITALS: BP 120/47; PULSE 68; RESP 16; TEMP 36.6; O2SAT 92
[2023-05-29 07:15] LABS: INR 1.07 (0.91-1.10); Prothrombin Time 14.6 Seconds
[2023-05-29] MEDS: PROCHLORPERAZINE 5 MG/ML VIAL IVP (07:52)
--- NOTE | 2023-05-29 08:19 | PM.ORPN ---
Subjective Subjective Time Seen by Provider: 07:20 Date Seen: 05/29/23 Principal diagnosis: Status post left knee replacement Interval history: Ryan is not feeling well this morning due to nausea and retching. Blood glucose is normal. Ortho Exam Narrative Exam Narrative: Alert and oriented x3. Patient is in no acute distress, however visibly uncomfortable due to nausea and retching. Converses without labored breathing. Hearing is grossly intact. Ambulates with a walker. Examination of left knee shows the dressing is intact. Mild edema. Mild effusion. No erythema warmth or sign of infection. Quad strength 5/5. CMS is intact left lower extremity. Bilateral calves are soft and nontender. Const Vital Signs, click to edit/add: Vital Signs - 24 hr 05/28/23 08:57 05/28/23 09:00 05/28/23 09:05 Temperature Pulse Rate 63 60 59 L Pulse Rate [Dorsalis Pedis] Pulse Rate [Pulse Oximeter] Respiratory Rate 16 16 16 Blood Pressure 142/62 H 109/49 L 103/48 L Blood Pressure [Right Arm] Pulse Oximetry 98 98 98 Oxygen Delivery Method Nasal Cannula Nasal Cannula Nasal Cannula Oxygen Flow Rate 2 2 2 05/28/23 11:15 05/28/23 11:20 05/28/23 11:25 Temperature 97.1 F L Pulse Rate 54 L 54 L 53 L Pulse Rate [Dorsalis Pedis] Pulse Rate [Pulse Oximeter] Respiratory Rate 12 12 12 Blood Pressure 108/54 L 103/53 L 107/57 L Blood Pressure [Right Arm] Pulse Oximetry 96 95 96 Oxygen Delivery Method Room Air Oxygen Flow Rate 05/28/23 11:30 05/28/23 11:35 05/28/23 11:40 Temperature Pulse Rate 52 L 51 L 51 L Pulse Rate [Dorsalis Pedis] Pulse Rate [Pulse Oximeter] Respiratory Rate 12 12 12 Blood Pressure 108/56 L 109/56 L 113/53 L Blood Pressure [Right Arm] Pulse Oximetry 98 94 95 Oxygen Delivery Method Oxygen Flow Rate 05/28/23 11:45 05/28/23 12:00 05/28/23 12:15 Temperature 97.4 F L 96.2 F L 95.8 F L Pulse Rate 51 L 51 L Pulse Rate [Dorsalis Pedis] Pulse Rate [Pulse Oximeter] 52 L Respiratory Rate 12 14 14 Blood Pressure 114/55 L Blood Pressure [Right Arm] 115/54 L 131/65 Pulse Oximetry 94 98 Oxygen Delivery Method Room Air Room Air Room Air Oxygen Flow Rate 0 0 05/28/23 12:30 05/28/23 12:45 05/28/23 13:00 Temperature 95.9 F L 96.0 F L 95.9 F L Pulse Rate Pulse Rate [Dorsalis Pedis] Pulse Rate [Pulse Oximeter] 52 L 48 L 49 L Respiratory Rate 14 16 14 Blood Pressure Blood Pressure [Right Arm] 148/60 H 137/58 L 131/61 Pulse Oximetry 98 97 98 Oxygen Delivery Method Room Air Nasal Cannula Nasal Cannula Oxygen Flow Rate 0 1 1 05/28/23 13:30 05/28/23 14:00 05/28/23 15:00 Temperature 95.6 F L 96.0 F L 96.1 F L Pulse Rate Pulse Rate [Dorsalis Pedis] Pulse Rate [Pulse Oximeter] 50 L 50 L 54 L Respiratory Rate 14 14 14 Blood Pressure Blood Pressure [Right Arm] 140/63 H 147/70 H 148/61 H Pulse Oximetry 98 99 100 Oxygen Delivery Method Nasal Cannula Nasal Cannula Nasal Cannula Oxygen Flow Rate 1 1 1 05/28/23 16:00 05/28/23 17:00 05/28/23 18:00 Temperature 96.3 F L 96.5 F L 96.5 F L Pulse Rate Pulse Rate [Dorsalis Pedis] Pulse Rate [Pulse Oximeter] 55 L 57 L 63 Respiratory Rate 12 14 14 Blood Pressure Blood Pressure [Right Arm] 133/54 L 166/63 H 157/62 H Pulse Oximetry 100 100 100 Oxygen Delivery Method Nasal Cannula Nasal Cannula Nasal Cannula Oxygen Flow Rate 1 1 1 05/28/23 19:34 05/28/23 23:37 05/29/23 03:00 Temperature 96.7 F L 97.3 F L 97.2 F L Pulse Rate Pulse Rate [Dorsalis Pedis] Pulse Rate [Pulse Oximeter] 67 74 69 Respiratory Rate 16 16 18 Blood Pressure Blood Pressure [Right Arm] 145/57 H 144/59 H Pulse Oximetry 99 98 97 Oxygen Delivery Method Nasal Cannula Nasal Cannula Nasal Cannula Oxygen Flow Rate 1 1 1 05/29/23 07:00 Temperature 97.9 F Pulse Rate Pulse Rate [Dorsalis Pedis] 68 Pulse Rate [Pulse Oximeter] Respiratory Rate 16 Blood Pressure Blood Pressure [Right Arm] 120/47 L Pulse Oximetry 92 Oxygen Delivery Method Room Air Oxygen Flow Rate Assessment and Plan Assessment and plan (1) Post-operative nausea and vomiting: Problem details: - IV fluids and supportive measures with antiemetics as needed Status: Acute (2) Status post total left knee replacement: Problem details: - 05/28/2023, Dr. Espinoza, [facility]. - on venous thromboembolism prophylaxis Status: Acute Assessment and Plan: Plan for discharge is today or tomorrow to home when he meets discharge criteria. Currently he is not able to discharge due to his significant nausea and retching. He does not feel well. Blood glucose normal this morning. He may need to stay another day. Will see how the day goes. DVT prophylaxis includes aspirin 81 mg twice daily x1 month, Frank stockings x1 month may remove for 1 hr per day, frequent ambulation Remove dressing in 1 week. Observe wound and phone Orthopedics with any questions or concerns Return to clinic in 1 week for a wound check Return to clinic in 6 weeks with surgeon Minimize narcotic use. Wean off and discontinue soon as possible. Activities as tolerated. No strenuous activity. Outpatient physical therapy as scheduled. Ice and elevate the operative extremity. No restriction on ice.
[2023-05-29] MEDS: SIMVASTATIN 10 MG TABLET PO (09:10)
[2023-05-29] MEDS: SENNOSIDES 1 TAB TABLET 2 TAB PO (09:11)
[2023-05-29] MEDS: hydroCHLOROthiazide 25 MG TABLET PO (09:55)
[2023-05-29] MEDS: ASPIRIN 81 MG TABLET EC PO ×2 (09:55→20:49)
[2023-05-29] MEDS: LOSARTAN POTASSIUM 50 MG TABLET 100 MG PO (09:55)
[2023-05-29] MEDS: atenoloL 50 MG TABLET PO (09:55)
[2023-05-29] MEDS: METOCLOPRAMIDE 10 MG TABLET PO ×4 (10:17→20:48)
[2023-05-29 11:00] VITALS: BP 116/49; PULSE 70; RESP 16; TEMP 36.4; O2SAT 100
--- NOTE | 2023-05-29 11:24 | P.IMPN_ITS ---
Progress Note: A&P Assessment and plan (1) Status post total left knee replacement: Problem details: - 05/28/2023, Dr. Espinoza, [facility]. - POD#1. Perioperative management, including pain management per primary team, Orthopedic surgery - encourage therapy when able and nausea controlled - on venous thromboembolism prophylaxis - plan to discharge when nausea controlled, tolerating orals, participating in therapy Status: Acute (2) Post-operative nausea and vomiting: Problem details: - continue IV fluids and supportive measures with antiemetics as needed - 05/29: Start Reglan q.i.d. scheduled, p.r.n. IV Compazine. Considered scopolamine patch however may be too sedating. Does not appear to be oral narcotics complicating current nausea. Status: Acute (3) Type 1 diabetes mellitus without complication, with halfway current use of insulin pump: Problem details: - on insulin pump and continuous glucose monitoring - 05/29: Morning blood sugar 156 Status: Acute Plan plan to discharge when nausea controlled, tolerating orals, participating in therapy Time Spent With Patient Total time spent: Total time spent caring for the patient today was 45 minutes. This includes time spent for the visit reviewing the chart, time spent during the visit, time spent after the visit and documentation and planning in coordination of care. Subjective Date Seen: 05/29/23 Interval history: Patient is seen this morning as has had unrelenting nausea, vomiting overnight. Remains nauseous this morning. Improved with lying still. Unable to tolerate therapy as nausea worsens with movement. Has not attempted any orals this morning. Reports pain is otherwise adequately managed with Tylenol currently. Has not taken any oral oxycodone. Exam Narrative: Exam Narrative: PHYSICAL EXAM General: Sitting reclined in bed with eyes closed, appropriately conversant, NAD otherwise HEENT: Normocephalic, atraumatic, sclera white, EOMI, oral mucosa moist Cardiovascular: RRR, S1S2. No pitting edema Pulmonary: CTA bilaterally without rhonchi, rales, expiratory wheezes. No dyspnea Abdominal: Soft, nondistended, NTTP Neurological: Alert, answering questions appropriately, cranial nerves intact, no focal findings Extremities: No gross joint deformity or swelling. Postoperative dressing in place, dry. Neurovascularly intact Skin: Warm, dry. Const: Vital Signs, click to edit/add: Vital Signs - 24 hr 05/28/23 11:25 05/28/23 11:30 05/28/23 11:35 Temperature Pulse Rate 53 L 52 L 51 L Pulse Rate [Dorsal is Pedis] Pulse Rate [Pulse Oximeter] Respiratory Rate 12 12 12 Blood Pressure 107/57 L 108/56 L 109/56 L Blood Pressure [Ri ght Arm] Pulse Oximetry 96 98 94 Oxygen Delivery Me thod Oxygen Flow Rate 05/28/23 11:40 05/28/23 11:45 05/28/23 12:00 Temperature 97.4 F L 96.2 F L Pulse Rate 51 L 51 L 51 L Pulse Rate [Dorsal is Pedis] Pulse Rate [Pulse Oximeter] Respiratory Rate 12 12 14 Blood Pressure 113/53 L 114/55 L Blood Pressure [Ri ght Arm] 115/54 L Pulse Oximetry 95 94 Oxygen Delivery Me thod Room Air Room Air Oxygen Flow Rate 0 05/28/23 12:15 05/28/23 12:30 05/28/23 12:45 Temperature 95.8 F L 95.9 F L 96.0 F L Pulse Rate Pulse Rate [Dorsal is Pedis] Pulse Rate [Pulse Oximeter] 52 L 52 L 48 L Respiratory Rate 14 14 16 Blood Pressure Blood Pressure [Ri ght Arm] 131/65 148/60 H 137/58 L Pulse Oximetry 98 98 97 Oxygen Delivery Me thod Room Air Room Air Nasal Cannula Oxygen Flow Rate 0 0 1 05/28/23 13:00 05/28/23 13:30 05/28/23 14:00 Temperature 95.9 F L 95.6 F L 96.0 F L Pulse Rate Pulse Rate [Dorsal is Pedis] Pulse Rate [Pulse Oximeter] 49 L 50 L 50 L Respiratory Rate 14 14 14 Blood Pressure Blood Pressure [Ri ght Arm] 131/61 140/63 H 147/70 H Pulse Oximetry 98 98 99 Oxygen Delivery Me thod Nasal Cannula Nasal Cannula Nasal Cannula Oxygen Flow Rate 1 1 1 05/28/23 15:00 05/28/23 16:00 05/28/23 17:00 Temperature 96.1 F L 96.3 F L 96.5 F L Pulse Rate Pulse Rate [Dorsal is Pedis] Pulse Rate [Pulse Oximeter] 54 L 55 L 57 L Respiratory Rate 14 12 14 Blood Pressure Blood Pressure [Ri ght Arm] 148/61 H 133/54 L 166/63 H Pulse Oximetry 100 100 100 Oxygen Delivery Me thod Nasal Cannula Nasal Cannula Nasal Cannula Oxygen Flow Rate 1 1 1 05/28/23 18:00 05/28/23 19:34 05/28/23 23:37 Temperature 96.5 F L 96.7 F L 97.3 F L Pulse Rate Pulse Rate [Dorsal is Pedis] Pulse Rate [Pulse Oximeter] 63 67 74 Respiratory Rate 14 16 16 Blood Pressure [facility] 157/62 H 145/57 H Pulse Oximetry 100 99 98 Oxygen Delivery Me thod Nasal Cannula Nasal Cannula Nasal Cannula Oxygen Flow Rate 1 1 1 05/29/23 03:00 05/29/23 07:00 Temperature 97.2 F L 97.9 F Pulse Rate Pulse Rate [Dorsal is Pedis] 68 Pulse Rate [Pulse Oximeter] 69 Respiratory Rate 18 16 Blood Pressure Blood Pressure [facility]] 144/59 H 120/47 L Pulse Oximetry 97 92 Oxygen Delivery Me thod Nasal Cannula Room Air Oxygen Flow Rate 1 Labs Labs: Laboratory Results - last 24 hr 05/29/23 05:38 WBC 9.30 RBC 4.09 L Hgb 12.6 L Hct 37.2 MCV 91 MCH 31 MCHC 34 RDW Coeff of Sergio 12.2 Plt Count 195 Neut % (Auto) 87.8 H Lymph % (Auto) 7.0 L [place] % (Auto) 5.1 Eos % (Auto) 0.0 Baso % (Auto) 0.1 Neut # (Auto) 8.20 H Lymph # (Auto) 0.70 L [place] # (Auto) 0.50 Eos # (Auto) 0.00 Baso # (Auto) 0.01 Abs Immat Gran (auto) 0.00 Imm/Tot Granulo (auto) 0.0 INR 1.07 Sodium 136 Potassium 4.0 BUN 25 Creatinine 1.2 Estimated Creat Clear 57.00 Estimated GFR 66
--- NOTE | 2023-05-29 12:17 | PC.NURSE ---
Pt continues to c/o nausea uncontrolled by current medications. Anti-nausea aromatherapy patch provided at 11:50. Pt noted to have two episodes of emesis when attempting to ambulate to bathroom with PT. CARMEN Connelly updated.
[2023-05-29] MEDS: SCOPOLAMINE 1 MG/3 DAY PATCH 1 PATCH TRANSDERMA (12:47)
[2023-05-29] MEDS: PROCHLORPERAZINE 5 MG/ML VIAL IV (14:12)
[2023-05-29 15:00] VITALS: BP 121/49; PULSE 68; RESP 16; TEMP 36.4; O2SAT 99
[2023-05-29] MEDS: LORazepam 2 MG/ML inj 0.5 MG IVP (15:12)
--- NOTE | 2023-05-29 18:38 | PC.NURSE ---
Addendum entered by Yani Berry RN 05/29/23 20:04: Pt's DBP noted to be in the 40s this shift with B/P of 120/47 noted with 0700 VS. MD Marinelli and CARMEN Connelly aware. Original Note: [id number]: Pt continues to have ongoing nausea with anti-nausea patch applied, food and fluids encouraged and scheduled as well as PRN anti-emetic medications given. Pt did report relief of last PRN Lorazepam dose for nausea. He only ate 10% of lunch of [employer] and crackers and 25% of supper. Staff continue to encourage fluids as tolerated. LS clear to all lobes bilaterally and bowel sounds active x 4. Pain to left knee has been controlled throughout the shift as pt rated pain 3-4/10 at its highest and reported pain was being managed with rest, repositioning and cryo cuff. Dressing to L anterior knee noted to be C/D/I. Pt has been alert & oriented x 4 and able to make needs known. Pt noted to have two episodes of emesis this morning after ambulating from bed to bathroom with PT. Staff did use bedside commode this evening due to pt's ongoing nausea. He denies shortness of breath and CP when asked and has been afebrile throughout the shift.
[2023-05-29] MEDS: ACETAMINOPHEN 500 MG TABLET 1000 MG PO ×2 (18:41→23:57)
[2023-05-29 19:43] VITALS: BP 122/51; PULSE 69; RESP 16; TEMP 36.6; O2SAT 94
[2023-05-29] MEDS: OXYCODONE 5 MG TABLET PO (21:07)
[2023-05-29 23:00] VITALS: BP 101/45; PULSE 64; RESP 16; TEMP 36.4; O2SAT 97
[2023-05-30] MEDS: OXYCODONE 5 MG TABLET PO ×2 (01:52→08:14)
[2023-05-30 03:00] VITALS: BP 111/42; PULSE 65; RESP 18; TEMP 36.3; O2SAT 97
[2023-05-30] MEDS: LEVOTHYROXINE 75 MCG TABLET 150 MCG PO (06:13)
[2023-05-30] MEDS: ACETAMINOPHEN 500 MG TABLET 1000 MG PO (06:13)
[2023-05-30 06:35] LABS: Basophils Absolute Auto 0.01 K/uL (0.00-0.30); Basophils Percent Auto 0.1 % (0.0-3.0); Eosinophils Absolute Auto 0.03 K/uL (0.00-0.50); Eosinophils Percent Auto 0.4 % (0.0-7.0); Hematocrit 31.4 % (37.0-53.0); Hemoglobin* 10.7 gm/dL (13.5-17.5); Immature Granulocytes Abs Auto 0.01 K/uL (0.00-0.30); Immature Granulocytes Pct Auto 0.1 %; Lymphocytes Percent Auto 18.2 % (20-44); Mean Corpuscular HGB Conc 34 gm/dL (32-36); Mean Corpuscular Hemoglobin 32 pg (26-34); Mean Corpuscular Volume 93 fL (80-100); Monocytes Percent Auto 6.8 % (0.0-11.0); Neutrophils Percent Auto 74.4 % (42.0-72.0); Platelet Count* 178 K/uL (140-440); RDW Coefficient of Variation % 12.6 % (11.5-15.5); Red Blood Count 3.39 m/uL (4.30-5.90); White Blood Count* 7.21 K/uL (4.50-11.00)
[2023-05-30 06:41] LABS: Slide Review Reflex No
[2023-05-30 06:55] LABS: Sodium* 137 mmol/L (135-149)
[2023-05-30 06:56] LABS: Potassium* 4.1 mmol/L (3.6-5.1)
[2023-05-30 06:58] LABS: Creatinine* 1.2 mg/dL (0.5-1.5); Estimated Glomerular Filt Rate 66 ml/min
--- NOTE | 2023-05-30 06:58 | PC.NURSE ---
End of shift [id number]: Pt A&O, pleasant and cooperative. Pt has hx of sleep apnea. He did not bring his CPAP. Pt placed on 1L of 02 throughout the night. VSS.?CMS intact and positive petal pulses. Dressing to left knee c/d/i. Cryocuff on site. Pt tolerating crackers and liquids. A1 w/ walker and gait belt. Pt reported ?slight? nausea when getting back to bed but went away once lying down. Pt rating pain in knee 0-7/10. PRN oxycodone given w/ stated relief. Pt voiding adequate amounts. Denies any lightheadedness or dizziness. Using call light appropriately.
[2023-05-30 06:59] LABS: Blood Urea Nitrogen* 26 mg/dL (7-30)
[2023-05-30 07:00] VITALS: BP 127/47; PULSE 65; RESP 15; TEMP 36.6; O2SAT 96
[2023-05-30 07:26] LABS: INR 1.08 (0.91-1.10); Prothrombin Time 14.7 Seconds
--- NOTE | 2023-05-30 08:08 | P.ORPN_ITS ---
Subjective Subjective Time Seen by Provider: 08:09 Date Seen: 05/30/23 Principal diagnosis: Status post left knee replacement Interval history: Ryan is feeling much better this morning. Nausea has ceased. He is looking forward to breakfast and discharging to home today. Ortho Exam Narrative Exam Narrative: Alert and oriented x3. Patient is in no acute distress. Converses without labored breathing. Hearing is grossly intact. Ambulates with a walker. Examination of the left knee shows dressing is intact. Minimal edema. Minimal effusion. Able to straight leg raise. CMS intact left lower extremity. Bilateral calves are soft nontender. Const Vital Signs, click to edit/add: Vital Signs - 24 hr 05/29/23 11:00 05/29/23 15:00 05/29/23 15:00 Temperature 97.5 F L 97.5 F L Pulse Rate [Dorsalis Pedis] 68 Pulse Rate [Pulse Oximeter] 70 68 68 Respiratory Rate 16 16 16 Blood Pressure [Right Arm] 116/49 L 121/49 L Pulse Oximetry 100 99 Oxygen Delivery Method Nasal Cannula Room Air Oxygen Flow Rate 05/29/23 19:43 05/29/23 23:00 05/30/23 03:00 Temperature 98 F 97.5 F L 97.4 F L Pulse Rate [Dorsalis Pedis] Pulse Rate [Pulse Oximeter] 69 64 65 Respiratory Rate 16 16 18 Blood Pressure [Right Arm] 122/51 L 101/45 L 111/42 L Pulse Oximetry 94 97 97 Oxygen Delivery Method Room Air Nasal Cannula Nasal Cannula Oxygen Flow Rate 1 1 Documenting provider has reviewed patient's vital signs: yes Assessment and Plan Assessment and plan (1) Status post total left knee replacement: Problem details: - 05/28/2023, Dr. Espinoza, [facility]. Status: Acute Assessment and Plan: Plan for discharge is today to home if they meet discharge criteria. Nausea has improved, patient has an appetite. DVT prophylaxis includes aspirin 81 mg twice daily x1 month, Frank stockings x1 month may remove for 1 hr per day, frequent ambulation Remove dressing in 1 week. Observe wound and phone Orthopedics with any questions or concerns Return to clinic in 1 week for a wound check Return to clinic in 6 weeks with surgeon Minimize narcotic use. Wean off and discontinue soon as possible. Activities as tolerated. No strenuous activity. Outpatient physical therapy as scheduled. Ice and elevate the operative extremity. No restriction on ice.
[2023-05-30] MEDS: ASPIRIN 81 MG TABLET EC PO (08:15)
[2023-05-30] MEDS: SENNOSIDES 1 TAB TABLET 2 TAB PO (08:15)
[2023-05-30] MEDS: atenoloL 50 MG TABLET PO (08:15)
[2023-05-30] MEDS: hydroCHLOROthiazide 25 MG TABLET PO (08:15)
[2023-05-30] MEDS: LOSARTAN POTASSIUM 50 MG TABLET 100 MG PO (08:15)
--- NOTE | 2023-05-30 11:11 | PC.NURSE ---
Nursing Care Hours: [id number] Pt this shift calm and cooperative, alert and oriented. Denies N/V. CMS intact, dressing CDI. Pain rated 2/10, smallest dose of oxycodone given prior to PT. SB assist with walker and gait belt to bathroom. Pt drinking sufficiently and SL in morning. BS check in morning was 147, pt has implanted insulin pump. At discharge, pt c/o feeling shaky and low BS though pt self monitor reads 140. Used unit monitor and results were 114, orange juice given for symptoms. Reviewed insulin pump boluses and bumps from pt monitor. Total insulin received per pt report from monitor from 421 to 920 was 4.1 units. Discharge instructions went over with pt and spouse, questions and concerns addressed. Wheeled out to vehicle in stable condition.
== END 2023-05-30 10:59 | disposition home or self-care (01) | DRG 470 ==
LOC: OR 14:19 → MEDSURG 05-30 08:26
PROVIDERS: Admitting Provider Orthopaedic Surgery; PCP Family Medicine; Visit Provider Orthopaedic Surgery
PROC: 0SRD0J9 Replacement of Left Knee Joint with Synthetic Substitute, Cemented, Open Approach (ICD-10-PCS; CPT 27447; principal; 2023-05-28 09:15)
DX: M17.12 Unilateral primary osteoarthritis, left knee (principal); G89.18 Other acute postprocedural pain; R11.2 Nausea with vomiting, unspecified; G47.33 Obstructive sleep apnea (adult) (pediatric); E03.9 Hypothyroidism, unspecified; Z96.41 Presence of insulin pump (external) (internal); E78.5 Hyperlipidemia, unspecified; I10 Essential (primary) hypertension; E10.9 Type 1 diabetes mellitus without complications; N40.0 Benign prostatic hyperplasia without lower urinary tract symptoms; E66.9 Obesity, unspecified
CPT/HCPCS: 01402; 36415; 64447; 64454; 73560; 76942; 82565; 82947; 82962; 84132; 84295; 84520; 85025; 85610; 97110; 97116; 97162; 97165; 97530; 97535; A9270; C1776; J0665; J0690; J0780; J1100; J1170; J1790; J2060; J2250; J2405; J2704; J3010; J7120

== ENCOUNTER 2023-09-02 09:03 | Outpatient (CLI) | payer MEDICARE, BC, SELFPAY ==
--- OUTSIDE RECORDS SUMMARY | 2023-09-02 09:12 | XMS_ITS | Clinical Summary ---
Author Name Unknown Organization [facility] Address [address] [place] [address] Care Team Providers Care Assistant Hvac Mechanic Name Role Phone Unassigned, Provider Primary Care Provider Unava ilable Source Comments You are receiving this document as you are listed as the primary care provider,follow-up provider, or the patient has been referred to you for consultation.This is in compliance with the Medicare and[facility] EHR Incentive Program,which states Providers who transition their patient to another setting of careor provider of care or refers their patient to another provider of care shouldprovide summary care record for each transition of care or referral. [employer] Allergies No known active allergies Medications Medication Sig Dispensed Refills Start Date End Date Status NOVOLOG 100 UNIT/ML injection SMARTSI-50 Unit(s) SUB-Q Daily 0 05/30/2021 Active levothyroxine (SYNTHROID) 100 MCG tablet Take by mouth daily. 0 Active simvastatin (ZOCOR) 40 MG tablet Take 40 mg by mouth daily at bedtime. 0 Active losartan (COZAAR) 100 MG tablet Take 100 mg by mouth daily. 0 Active atorvastatin (LIPITOR) 10 MG tablet Take 10 mg by mouth daily. 0 Active Active Problems Problem Noted Date Diagnosed Date Type 1 diabetes 12/01/1965 Social History Tobacco Use Types Packs/Day Years Used Date Smoking Tobacco: Never Assessed Sex and Gender Information Value Date Recorded Sex Assigned at Not on file Gender Identity Not on file Sexual Orientation Not on file Plan of Treatment Health Maintenance Due Date Last Done Comments Colon Cancer Screening Plan Due 1955 Diabetes: Creatinine 1955 Diabetes: Eye Exam 1955 Diabetes: Foot Exam 1955 Diabetes: HGBA1C 1955 Diabetes: Lipid Panel 1955 Diabetes: Urine Microalbumin 1955 Hep C Screening (Preventive Services) 1955 Medicare Annual Wellness Visit 1955 PSA Screening Discussion 1955 Pneumococcal 65+ Yrs (3 - PPSV23 or PCV20) 03/31/2021 03/31/2020, 08/10/2013 Zoster/Shingles (3 of 3) 08/15/2021 06/20/2021, 02/20 DTaP/Tdap/Td (2 - Tdap) 04/08/2022 04/08/2012 COVID-19 Vaccine (4 - season) 2023 04/27/2021, 09/03/2020, 08/12/2020 Influenza (#1) 2023 04/27/2021, 04/21, 04/22/2019, Additional history exists HepA Aged Out No longer eligi ble based on patient's age to complete this topic HepB Aged Out No longer eligi ble based on patient's age to complete this topic Hib Aged Out No longer eligi ble based on patient's age to complete this topic IPV (Polio) Aged Out No longer eligi ble based on patient's age to complete this topic MCV4 Aged Out No longer eligi ble based on patient's age to complete this topic Care Teams Assistant Hvac Mechanic Relationship Specialty Start Date End Date Unassigned, Provider [address] [place] [address] PCP - General 07/13/01
--- OUTSIDE RECORDS SUMMARY | 2023-09-02 09:12 | XMS_ITS | Clinical Summary ---
Author Name Unknown Organization [facility] Address [place], [place] [address] Care Team Providers Care Experimental Worker Name Role Phone Ebenezer Smith Unavailable Todd Thomason MD Primary Care Provider + Allergies Active Allergy Reactions Criticality Noted Date Comments Andrew Inhibitors Cough 09/13/2014 Medications Medication Sig Dispensed Refills Start Date End Date Status ASPIRIN ORAL None Entered 0 Active omega-3 fatty acids-vitamin E (FISH OIL) 1,000 mg cap Take by mouth. 0 03/15/2014 Active multivitamin (MVI) tablet Take 1 tablet by mouth once daily. 0 03/15/2014 Active Lancing Device (ACCU-CHEK SOFTCLIX LANCET DEV) misc As directed. 1 Each 0 05/11/2014 Active lancets (ACCU-CHEK SOFTCLIX LANCETS) Dispense item covered by pt ins. 250.00 NIDDM type II - Test 3 times/day 300 Each 2 05/11/2014 Active insulin syringe-needle u-100 (BD INSULIN SYRINGE UF II) 0.3 mL 31 gauge x 5/16Indications:Type 1 diabetes mellitus without complication (HC) For administering insulin at home. 100 Each 2 05/05/2016 Active Lactobacillus acidophilus (PROBIOTIC) 10 billion cell cap Take by mouth. 0 03/10/2017 Acti ve insulin aspart U-100 (NOVOLOG U-100 INSULIN ASPART) 100 unit/mL injectionIndications :Type 1 diabetes mellitus without complication (HC) INJECT 40 UNITS SUBCUTANEOUSLY AT BEDTIME 40 mL 3 07/04/2018 Active blood sugar diagnostic (CONTOUR NEXT TEST STRIPS) stripIndications:Typ e 1 diabetes mellitus without complication (HC) Dispense item covered by pt ins. E10.9 IDDM type I - Test 3 times/day. 200 Each 6 07/02/2018 Active levothyroxine (SYNTHROID) 137 mcg tabletIndications:Ac quired hypothyroidism Take 1 tablet by mouth before breakfast. 90 tablet 0 10/07/2018 Active simvastatin (ZOCOR) 10 mg tabletIndications:Hy perlipidemia, unspecified hyperlipidemia type Take 1 tablet by mouth once daily in the evening. 30 tablet 0 10/14/2018 Active atenolol (TENORMIN) 50 mg tabletIndications:Hy pertension Take 1 tablet by mouth once daily. 90 tablet 0 10/23/2018 Active losartan-hydrochloro thiazide (HYZAAR) 100-25 mg tabletIndications:Hy pertension Take 1 tablet by mouth once daily. 90 tablet 0 10/23/2018 Active blood sugar diagnostic (CONTOUR NEXT TEST STRIPS) stripIndications:Typ e 1 diabetes mellitus without complication (HC) Dispense item covered by pt ins. E10.9 IDDM type I - Test 3 times/day. 300 Each 3 04/02/2019 Active rx ondansetron (ZOFRAN ODT) 4 mg orally disintegrating tablet (ED DC MED)Indications:Non- intractable vomiting with nausea, unspecified vomiting type Place 1 Tablet (4 mg) on the tongue every 8 hours if needed (nausea). 4 Tablet 0 06/21/2021 Active ondansetron (ZOFRAN ODT) 4 mg disintegrating tabletIndications:No n-intractable vomiting with nausea, unspecified vomiting type Place 1 Tablet (4 mg) on the tongue every 8 hours if needed for Nausea/Vomiting. 12 Tablet 0 06/21/2021 Active ondansetron (ZOFRAN ODT) 4 mg disintegrating tabletIndications:CO VID-19 Place 2 Tablets (8 mg) on the tongue every 8 hours if needed for Nausea/Vomiting. 16 Tablet 0 03/13/2023 Active Active Problems Problem Noted Date Diagnosed Date Hypertension 10/07/2017 Hyperlipidemia 10/07/2017 Acquired hypothyroidism 03/20/2015 Type 1 diabetes mellitus without complication Obstructive sleep apnea 08/16/2006 Resolved Problems Problem Noted Date Diagnosed Date Resolved Date FH: colon cancer 11/27/2014 03/20/2015 HYPOTHYROIDISM ACQUIRED UNSPEC 10/14/2006 03/20/2015 Obstructive sleep apnea 08/16/200602/21 Unspecified essential hypertension 05/15/2006 10/07/2017 Other and unspecified hyperlipidemia 05/15/2006 10/07/2017 DIABETES 06/11/2002 03/20/2015 Type I (juvenile type) diabe narciso mellitus without mention of complication, uncontrolled 03/20/2015 Immunizations Name Administration Dates Next Due COVID-19 vaccine ([employer] 30mcg/0.3mL) PF, MDV 04/27/2021 Influenza A (H1N1), Inactiva toi (Age >=3 Years) 07/25/2009 Influenza RIV4 (Age 18+ Year s) PRESERV FREE 04/22/2019 Influenza, High-dose Quadriv alent Inactivated 05/06/2020 Influenza, IIV3 (Age >=3 years) 04/27/20 13,04/08/2012,04/17/2010,2008,05/17/2008,05/22/2004,05/18/2002 Influenza, IIV4 04/14/2018, 7,04/27/2016,2013 Influenza, Inactivated AIIV4 (Age 65+ Years) Preserv Free 04/27/2021 Pneumococcal Poly,23-Valent (Pneumovax) 08/10/2013 Pneumococcal conj 13-Valent (Prevnar 13) 03/31/2020 Td (Age >=7 Years) 05/22/1993 Tdap 04/08/2012 Zoster (Zostavax-ZVL, live) 03/14/2015 Family History Medical History Relation Name Comments Hypertension Father Cancer-breast Mother Other Mother Gout Relation Name Status Comments Brother Alive Daughter Alive Father (Age 89) Mother (Age 87) colon canc er Sister Alive Social History Tobacco Use Types Packs/Day Years Used Date Smoking Tobacco: Never Smokeless Tobacco: Never Tobacco Cessation:Counseling Given: Yes Alcohol Use Standard Drinks/Week Comments Yes 0 (1 standard drink = 0.6 oz pur e alcohol) rare PHQ-2 Answer Date Recorded PHQ-2 Score 0 09/20/2018 Sex and Gender Information Value Date Recorded Sex Assigned at Not on file Gender Identity Not on file Sexual Orientation Not on file Obstetrics History Last Filed Vital Signs Vital Sign Reading Time Taken Comments Blood Pressure 140/57 03/13/2023 7:38 AM CDT Pulse 81 03/13/2023 7:38 AM CDT Temperature 38.1 ??C (100.6 ??F) 03/13/2023 7:38 AM C DT Respiratory Rate 18 03/13/2023 7:38 AM CDT Oxygen Saturation 96% 03/13/2023 7:38 AM CDT Inhaled Oxygen Concentration - - Weight 93.9 kg (207 lb) 03/13/2023 7:38 AM CDT Height 172.7 cm (5' 8) 03/13/2023 7:38 AM CDT Body Mass Index 31.47 03/13/2023 7:38 AM CDT Plan of Treatment Health Maintenance Due Date Last Done Comments Hepatitis C screening for ag e 18-79 1973 Zoster (shingles) series for age 50+ (2 of 3) 05/09/2015 03/14/2015 BMI (ht and wt on same day) for age 18+ 04/14/2019 04/14/2018, 10/02/2017, 11/07/2016, Additional history exists Depression screening for age 12+ 04/14/2019 04/14/20 18, 03/16/2016 Colonoscopy through age 75 06/06/202006/06, 06/06/2015, 06/01/2010, Additional history exists Tetanus booster 04/08/2022 04/08/2012, 05/22/1993 COVID-19 vaccine series (2022- season) 2023 12/01/2021, 04/27/2021, 09/03/2020, Additional history exists Influenza for age 65+ 03/22/2023 04/27/2021 , 05/06/2020, 04/22/2019, Additional history exists Lipids for age 45-75 04/14/2023 04/14/2018, 04/17/2017, 03/16/2016, Additional history exists Pneumococcal series for age 65+ (3 of 3 - PPSV23 or PCV20) 03/31/2025 03/31/2020, 08/10/2013 Tdap Completed 04/08/2012 Care Teams Experimental Worker Relationship Specialty Start Date End Date Todd Thomason MD [address] [place] [id number] PCP - General Family Practice 01/13/19 Ebenezer Smith [address] [place] [id number] Ophthalmology Ophthalmology Surgery 04/13/11
== END 2023-09-02 09:04 | disposition home or self-care (01) ==
PROVIDERS: PCP Family Medicine; Visit Provider Family Medicine
DX: E78.2 Mixed hyperlipidemia (principal); E03.9 Hypothyroidism, unspecified; E10.9 Type 1 diabetes mellitus without complications; N40.0 Benign prostatic hyperplasia without lower urinary tract symptoms; E78.6 Lipoprotein deficiency; Z96.41 Presence of insulin pump (external) (internal)
CPT/HCPCS: 80061; 84153; 84439; 84443; 85025

== ENCOUNTER 2024-08-28 09:01 | Outpatient (CLI) | payer MEDICARE, BC, SELFPAY | END 2024-08-28 09:02 | disposition home or self-care (01) | PROVIDERS: PCP Family Medicine; Visit Provider Family Medicine | DX: I10 Essential (primary) hypertension (principal); E78.2 Mixed hyperlipidemia; E03.9 Hypothyroidism, unspecified; E10.9 Type 1 diabetes mellitus without complications; Z12.5 Encounter for screening for malignant neoplasm of prostate; Z96.41 Presence of insulin pump (external) (internal) | CPT/HCPCS: 80048; 80061; 84443; G0103 ==

== ENCOUNTER 2025-03-15 10:23 | Outpatient (CLI) | payer MEDICARE, BC, SELFPAY ==
[2025-03-15 22:30] LABS: PSA Diagnostic* 4.57 ng/mL (0.10-4.00)
== END 2025-03-15 10:24 | disposition home or self-care (01) ==
LOC: FBOREF 10:23
PROVIDERS: PCP Family Medicine; Visit Provider Family Medicine
DX: N40.0 Benign prostatic hyperplasia without lower urinary tract symptoms (principal); Z12.5 Encounter for screening for malignant neoplasm of prostate
CPT/HCPCS: 84153

== ENCOUNTER 2025-06-01 06:30 | Outpatient (CLI) | payer MEDICARE, BC, SELFPAY ==
--- NOTE | 2025-06-01 07:43 | P.ANES_ITS ---
Anesthesia Charges Start Date/Time Anesthesia Start Date: 06/01/25 Anesthesia Start Time: 07:14 Stop Date/Time Anesthesia Stop Date: 06/01/25 Anesthesia Stop Time: 07:40 Coding CPT Codes CPT Codes: SEBAS LWR INTST SCR COLSC - 81594 ([id number]) P2 - PATIENT W/MILD SYST DISEASE, QK - DATA PROCESSING MECHANIC 2-4 CNCRNT ANES PROC, QX - LADLE REPAIRER SVC W/ MD MED DIRECTION
--- NOTE | 2025-06-01 07:43 | W.ANESCHARGE ---
Anesthesia Charges Start Date/Time Anesthesia Start Date: 06/01/25 Anesthesia Start Time: 07:14 Stop Date/Time Anesthesia Stop Date: 06/01/25 Anesthesia Stop Time: 07:40 Coding CPT Codes CPT Codes: SEBAS LWR INTST SCR COLSC - 20313 ([id number]) P2 - PATIENT W/MILD SYST DISEASE, QK - CONCRETE PRODUCTS MACHINE OPERATOR 2-4 CNCRNT ANES PROC, QX - STOCK MIXER SVC W/ MD MED DIRECTION
--- NOTE | 2025-06-01 07:44 | P.ANES_ITS ---
Anesthesia Charges Start Date/Time Anesthesia Start Date: 06/01/25 Anesthesia Start Time: 07:14 Stop Date/Time Anesthesia Stop Date: 06/01/25 Anesthesia Stop Time: 07:40 Summary Extremes of Age - Over 70 or under 1: MDA Coding CPT Codes CPT Codes: ANES LWR INTST SCR COLSC - 55221 ([id number]) QK - SILK PRESSER 2-4 CNCRNT ANES PROC, QX - HEREDITARY CANCER PROGRAM COORDINATOR SVC W/ MD MED DIRECTION, P2 - PATIENT W/MILD SYST DISEASE Additional Codes: Summary - Extremes of Age - Over 70 or under 1: MDA ([id number])
== END 2025-06-01 06:31 | disposition home or self-care (01) ==
LOC: OP CLINIC 06:32
PROVIDERS: PCP Family Medicine; Visit Provider Surgery
DX: Z12.11 Encounter for screening for malignant neoplasm of colon (principal); Z86.0100 Personal history of colon polyps, unspecified
CPT/HCPCS: 00812; 45378; 99100; J2704